=== PATIENT | female | born 1990 | race Two or more races ===

== ENCOUNTER 2023-06-01 10:49 | Inpatient (IN) | payer OTHER ==
[~2023-06-01] VITALS: Ht 162.6 cm; Wt 68.0 kg
[2023-06-01 12:05] LABS: CREATININE, RANDOM URINE 31.15 mg/dL (NOT ESTABLISHED); PROTEIN/CREATININE RATIO 0.73 mg/mg (0.010-0.107)
[2023-06-01 12:17] LABS: HEMATOCRIT 36.6 % (35.0-50.0); HEMOGLOBIN 11.8 g/dL (12.0-18.0); MCH 20.4 (27-36); MCHC 32.1 g/dl (30-36); MCV 63.5 fl (81-99); RBC 5.77 M/ul (4.3-5.7); RDW 17.1 (10.5-15.0)
[2023-06-01 12:28] LABS: CREATININE, SERUM 0.62 mg/dL (0.55-1.02)
[2023-06-01 13:09] VITALS: BP 141/96
[2023-06-01 13:40] LABS: AMPHETAMINES, URINE NEGATIVE (NEGATIVE); BARBITURATES, URINE NEGATIVE (NEGATIVE); BENZODIAZEPINE, URINE NEGATIVE (NEGATIVE); BUPRENORPHINE, URINE NEGATIVE (NEGATIVE); CANNABINOID, URINE NEGATIVE (NEGATIVE); COCAINE, URINE NEGATIVE (NEGATIVE); ECSTASY, URINE NEGATIVE (NEGATIVE); FENTANYL, URINE NEGATIVE (NEGATIVE); METHADONE, URINE NEGATIVE (NEGATIVE); OPIATES, URINE NEGATIVE (NEGATIVE); OXYCODONE, URINE NEGATIVE (NEGATIVE); PHENCYCLIDINE, URINE NEGATIVE (NEGATIVE)
[2023-06-01 13:50] LABS: ABO AB; ANTIBODY SCREEN NEGATIVE; RH POSITIVE
--- NOTE | 2023-06-01 19:08 | PR ---
[facility] [address] [facility] [place] [address] Signed Progress Notes IP Datetime Report Generated by CPN: 06/01/2023 19:08 PROGRESS NOTES: [id number] Impression: Normal Progression of Labor; Non-reassuring Heart Rate Procedures: Intrauterine Pressure Catheter; Scalp Electrode; Sterile Vag Exam Other Plans: continue position changes VITAL SIGNS: [id number] Vital Signs: Reviewed; Within Normal Limits EXAM: [id number] Dilatation: 6.0 Effacement: 80 Station: -2 Contractions: q 1 to 5 min MEMBRANES: [id number] Membranes Status: Ruptured Comments: Unclear whether or not this baby will tolerate labor with ongoing min variability. Will try another position but if no improvement will proceed with section. FETUS A: [id number] FHR Baseline: 140 Variability: Minimal - >Undetectable to <=5bpm Accelerations: 15X15 FHR Category: Category II Presentation: Vertex FETUS B: [id number] Signing Physician: Junie Stokes MD Copies: ~ *Electronically Signed* 06/01/231907 JUNIE STOKES MD PATIENT NAME: ERIK,[facility] PROGRESS NOTE DATE OF : [birth year] PHYSICIAN: JUNIE STOKES MD RPT #: [id number] REPORT IS CONFIDENTIAL AND NOT TO BE RELEASED WITHOUT AUTHORIZATION
--- NOTE | 2023-06-01 19:29 | PR ---
[facility] [address] [facility] [place], [place] [address] Signed Progress Notes IP Datetime Report Generated by CPN: 06/01/2023 19:29 PROGRESS NOTES: [id number] Impression: Non-reassuring Heart Rate Procedures: Sterile Vag Exam Plan: Deliver- Section Other Plans: continue position changes Informed Consent Obtain: Section Delivery VITAL SIGNS: [id number] Vital Signs: Reviewed; Within Normal Limits EXAM: [id number] Dilatation: 6.0 Effacement: 80 Station: -2 Contractions: q 1 to 5 min MEMBRANES: [id number] Membranes Status: Ruptured Comments: Cx unchanged. Now having some late decels and feel she should undergo for delivery as I am unable to increase her contractions given status. Discussed with pt and and they agree to . FETUS A: [id number] FHR Baseline: 140 Variability: Minimal - >Undetectable to <=5bpm Accelerations: 15X15 Decelerations: Late FHR Category: Category II Presentation: Vertex FETUS B: [id number] Signing Physician: Junie Stokes MD Copies: ~ *Electronically Signed* 06/01/231928 JUNIE STOKES MD PATIENT NAME: RAFITA VALENCIA PROGRESS NOTE DATE OF : 91 PHYSICIAN: JUNIE STOKES MD RPT #: [id number] REPORT IS CONFIDENTIAL AND NOT TO BE RELEASED WITHOUT AUTHORIZATION
[2023-06-01 21:41] VITALS: BP 115/71
--- NOTE | 2023-06-01 22:03 | NUR ---
06/01/232202 [place] 2110 PATIENT INTO ROOM 101. PATIENT DROWSY. PATIENT COMPLAINS OF BEING "DIZZY" DENIES BEING NAUSEATED. PATIENT BREATHING EQUAL AND UNLABORED. OXYGEN SATURATIONS ABOVE 90% ON ROOM AIR. SR ON TELE. HR 90-110. RR 12-20. PATIENT SPINAL LEVEL CHECKED. PATIENT STATES SHE IS PAINFUL BUT UNABLE TO RATE PAIN AT THIS TIME. FUNDAL MASSAGE COMPLETE. IVF INFUSING WITH PIT IN A PATENT LINE. BABY WITH [facility] NURSE. AT BEDSIDE. 2119 PATIENT HEAD OF BED ELEVATED. PATIENT CBG CHECK 158. KEZIA AT BEDSIDE. PATIENT DROWSY. PATIENT PALE. PATIENT BREATHING EQUAL AND UNLABORED. OXYGEN SATURATIONS ABOVE 90% ON ROOM AIR. SR ON TELE. HR 90-100. RR 12-20. SPINAL LEVEL CHECKED. FUNDAL MASSAGE COMPLETE. IV INFUSING WITH PIT. BABY WITH [facility] NURSE. AT BEDSIDE. 2129 PATIENT RESTING WITH EYES CLOSED. PATIENT DENIES BEING NAUSEATED. PATIENT PAINFUL BUT DOES NOT RATE PAIN AT THIS TIME. OXYGEN SATURATIONS ABOVE 90% ON ROOM AIR. FUNDAL MASSAGE COMPLETE. SPINAL LEVEL CHECKED. IVF WITH PIT INFUSING. 2144 PATIENT RESTING. PATIENT DENIES BEING NAUSEATED AT THIS TIME. PATIENT PINK. PATIENT DIZZY IMPROVED. PATIENT BREATHING EQUAL AND UNLABORED. OXYGEN SATURATIONS ABOVE 90% ON ROOM AIR. RR 12-20. PATIENT HAS DISCOMFORT WITH FUNDAL MASSAGE BUT UNABLE TO RATE PAIN. SPINAL LEVEL CHECKED. RAMIREZ 150 URINE OUT. YELLOW AND CLEAR. REPORT GIVEN TO [facility] NURSE. NO QUESTIONS FROM NURSE OR PATIENT AT THIS TIME. PATIENT BED LOWEST POSITION. LOCKED. CALL LIGHT WITHIN REACH NO FUTHER NEEDS.
[2023-06-02 05:30] LABS: HEMATOCRIT 30.6 % (35.0-50.0); MCH 20.4 (27-36); MCHC 32.6 g/dl (30-36); MCV 62.5 fl (81-99); RBC 4.89 M/ul (4.3-5.7); RDW 17.4 (10.5-15.0)
--- NOTE | 2023-06-02 09:36 | PR ---
[facility] [address] [place], [place] [address] Signed PP Progress Notes Datetime Report Generated by CPN: 06/02/2023 09:36 SUBJECTIVE: [id number] Pain: Within Normal Limits Nausea/Vomiting: Denies Vital Signs: [id number] Vital Signs: Reviewed; Within Normal Limits Cardiovascular: Normal Respiratory: Normal Abdomen/Uterus: Abnormal Lochia: Normal Vulva/Perineum: Not Done Breasts: Not Done CVA Tenderness: Not Done Extremities: Abnormal Incision: Normal Progress: Abnormal Exam Comments: Abdomen with active BS. Fundus firm, NT @ U-2. H/H 10/30.6, WBC 28.2, plat 176k IMPRESSION/PLAN/PROCEDURES: [id number] Impression: Normal Progression Other Impression: Leukocytosis Other Plans: ambulate, shower Procedures: None Progress Notes: Doing well but still very tired. Also, leukocytosis which is higher than usual though she has no temp elevations. Will repeat in am. Signing Physician: Junie Stokes MD Copies: ~ *Electronically Signed* 06/02/23 0936 JUNIE STOKES MD PATIENT NAME: ERIK,CHANNET PROGRESS NOTE DATE OF : 91 PHYSICIAN: JUNIE STOKSE MD RPT #: [id number] REPORT IS CONFIDENTIAL AND NOT TO BE RELEASED WITHOUT AUTHORIZATION
[2023-06-03 06:06] LABS: HEMATOCRIT 25.5 % (35.0-50.0); HEMOGLOBIN 8.4 g/dL (12.0-18.0); MCH 20.5 (27-36); MCHC 32.8 g/dl (30-36); MCV 62.5 fl (81-99); PLATELET COUNT 175 K/uL (140-440); RBC 4.08 M/ul (4.3-5.7); RDW 16.8 (10.5-15.0)
[2023-06-03 06:24] LABS: LYMPHOCYTES, MANUAL DIFF 11; MONOCYTES, MANUAL DIFF 5; NEUTROPHILS, MANUAL DIFF 84
--- NOTE | 2023-06-03 07:57 | PR ---
[facility] [address] [facility] [place], [place] [address] Signed PP Progress Notes Datetime Report Generated by CPN: 06/03/2023 07:57 SUBJECTIVE: [id number] Pain: Within Normal Limits Nausea/Vomiting: Denies Flatus: Yes Vital Signs: [id number] Vital Signs: Reviewed; Within Normal Limits Cardiovascular: Normal Respiratory: Normal Abdomen/Uterus: Abnormal Lochia: Normal Vulva/Perineum: Not Done Breasts: Not Done CVA Tenderness: Not Done Extremities: Normal Incision: Normal Progress: Normal Exam Comments: Abdomen with active BS. Fundus firm, NT @ U-2. H/H 8.4/25.5, WBC 21.8 S84/L11, plat 175k IMPRESSION/PLAN/PROCEDURES: [id number] Impression: Normal Progression Other Impression: DM not well controlled Other Plans: Increase am insulin Procedures: None Progress Notes: Doing well except sugars not well controlled. Will make sure she is ordering correctly on menu and increase insulin in the am from 20 to 30 units. WBC still elevated though improved and no evidence of fever or other infection. Will keep her in the hospital with probable discharge tomorrow. Signing Physician: Junie Stokes MD Copies: ~ *Electronically Signed* 06/03/23 0757 JUNIE STOKES MD PATIENT NAME: RAFITA VALENCIA PROGRESS NOTE DATE OF : 91 PHYSICIAN: JUNIE STOKES MD RPT #: [id number] REPORT IS CONFIDENTIAL AND NOT TO BE RELEASED WITHOUT AUTHORIZATION
--- NOTE | 2023-06-03 14:20 | NUR ---
[facility] ROUNDS. BABY SLEEPING CONTENTEDLY NEXT TO MOM IN BED. DAD SLEEPING ON COUCH. DID NOT WAKE. MOM EXHIBITED STRONG RELATIONAL RESOURCES. PROVIDED HOSPITALITY; PROVIDED PRAYER. MOM EXPRESSED GRATITUDE.
--- NOTE | 2023-06-04 08:33 | PR ---
[facility] [address] [facility] [place], [place] [address] Signed PP Progress Notes Datetime Report Generated by CPN: 06/04/2023 08:32 SUBJECTIVE: [id number] Pain: Within Normal Limits Pain Comments: low sugar this am--66 Nausea/Vomiting: Denies Flatus: Yes Vital Signs: [id number] Vital Signs: Reviewed Notable Details: mild HTN Cardiovascular: Normal Respiratory: Normal Abdomen/Uterus: Abnormal Lochia: Normal Vulva/Perineum: Not Done Breasts: Not Done CVA Tenderness: Not Done Extremities: Normal Incision: Normal Progress: Abnormal Exam Comments: Abdomen with active BS. Fundus firm, NT @ U-2. IMPRESSION/PLAN/PROCEDURES: [id number] Impression: Normal Progression; Difficulties Other Impression: DM not well controlled Plan: Remove Estero Other Plans: Increase am insulin Procedures: None Progress Notes: Doing well. Low sugar this am so will decrease hs insulin slightly but otherwise improved. I feel she is stable for discharge. Signing Physician: Junie Stokes MD Copies: ~ *Electronically Signed* 06/04/23 08 JUNIE STOKES MD PATIENT NAME: RAFITA VALENCIA PROGRESS NOTE DATE OF : 91 PHYSICIAN: JUNIE STOKES MD RPT #: [id number] REPORT IS CONFIDENTIAL AND NOT TO BE RELEASED WITHOUT AUTHORIZATION
--- NOTE | 2023-06-05 14:33 | OR ---
[facility] [address] [place], [place] [address] Signed DATE OF OPERATION: 06/01/2023 SURGEON: Junie Stokes MD [employer] SUPERVISOR: SHELLIE Copeland DO PREOPERATIVE DIAGNOSES: 37.3 week , non-reassuring heart tracing, type 2 diabetes. POSTOPERATIVE DIAGNOSES: 37.3 week , non-reassuring heart tracing, type 2 diabetes, delivered. PROCEDURE: Primary section with low segment transverse uterine incision. ANESTHESIA: Spinal. ESTIMATED BLOOD LOSS: 600 mL. DRAINS: Richards catheter. INDICATIONS AND FINDINGS: The patient is a 33-year-old female, 1, now para 1, who was admitted in active labor at 37.3 weeks. Her has been complicated by late registration as well as type 2 diabetes which had not been well controlled prior to her . She did well however after beginning insulin. During her labor unfortunately, the baby developed recurrent lates as well as poor variability and the decision was made to proceed with as she was remote from delivery. At the time of delivery, she was delivered of a little girl via lower segment transverse uterine incision from the LOP position with Apgars of 8 and 9 and weight of 7 pounds 8 ounces. The uterus, tubes, ovaries, and placenta appeared normal. PROCEDURE IN DETAIL: The patient was prepped and draped in the supine position. A Pfannenstiel skin incision was made and carried down to the fascia. The incision was extended laterally. The inferior and superior fascial flaps were then created. The muscles were bluntly divided Electronically Signed By: JUNIE STOKES MD 06/05/23 1433 PATIENT NAME: RAFITA VALENCIA OPERATIVE REPORT DATE OF : 89 REPORT #: [id number] PHYSICIAN: JUNIE STOKES MD PCP: SEVERIANO FROST DO REPORT IS CONFIDENTIAL AND NOT TO BE RELEASED WITHOUT AUTHORIZATION [facility] [address] [place], [place] [address] Signed and the peritoneum opened bluntly and the incision extended bluntly. The Dheeraj retractor was then placed. The uterine incision was made at the upper aspect of the peritoneal reflection. The baby was delivered with the above findings and handed off to the pediatric staff in attendance. The placenta was removed manually and the uterus explored with a lap tape assuring no remaining fragments. The edges of the incision were identified. The uterus was closed in 2 layers using 0 Monocryl. The first layer was a running locking stitch and the second was a vertical imbricating stitch. The abdomen was irrigated, inspected, and a [id number] was required in the center for control of bleeding. Following this, there was good hemostasis and the retractor was removed and the peritoneum identified. The peritoneum was then closed with a running suture of 3-0 Vicryl. The muscles were brought together with interrupted sutures of 0 Vicryl. Bleeding points on the muscles were controlled with cautery. This layer was irrigated and inspected and good hemostasis was noted. The fascia was then closed from each angle to the midline with a running suture of 0 Vicryl. The subcu space was irrigated and bleeding points controlled with cautery. The deep space was closed with interrupted sutures of 3-0 Vicryl. The skin was closed with augusta. All sponge and needle counts were correct. She tolerated the procedure well and was taken to the recovery room in good condition. Junie Stokes MD PJW/LETICIA /[id number] Copies: ~ Electronically Signed By: JUNIE STOKES MD 06/05/23 1433 PATIENT NAME: RAFITA VALENCIA OPERATIVE REPORT DATE OF : 91 REPORT #: [id number] PHYSICIAN: JUNIE STOKES MD PCP: SEVERIANO FROST DO REPORT IS CONFIDENTIAL AND NOT TO BE RELEASED WITHOUT AUTHORIZATION
== END 2023-06-04 14:59 | disposition home or self-care (01) | DRG 787 ==
LOC: FBCO 10:49 → FBC 12:58
PROVIDERS: ADMIT Obstetrics & Gynecology; ATTEND Obstetrics & Gynecology
PROC: 10H07YZ Insertion of Other Device into Products of Conception, Via Natural or Artificial Opening (ICD-10-PCS; 2023-06-01)
PROC: 4A033R1 Measurement of Arterial Saturation, Peripheral, Percutaneous Approach (ICD-10-PCS; 2023-06-01)
PROC: 10D00Z1 Extraction of Products of Conception, Low, Open Approach (ICD-10-PCS; principal; 2023-06-01 20:08)
DX: O76 Abnormality in fetal heart rate and rhythm complicating labor and delivery (principal); O99.12 Other diseases of the blood and blood-forming organs and certain disorders involving the immune mechanism complicating childbirth; Z37.0 Single live birth; O16.4 Unspecified maternal hypertension, complicating childbirth; O24.92 Unspecified diabetes mellitus in childbirth; Z3A.37 37 weeks gestation of pregnancy; D72.829 Elevated white blood cell count, unspecified; O99.824 Streptococcus B carrier state complicating childbirth; Z88.8 Allergy status to other drugs, medicaments and biological substances; Z79.4 Long term (current) use of insulin
CPT/HCPCS: 01961; 36415; 59025; 76942; 80307; 82565; 82570; 82803; 84156; 84450; 84520; 84550; 85025; 85027; 85060; 86850; 86900; 86901; A9270; G0463; J0131; J0456; J0690; J1100; J1815; J1885; J2001; J2371; J2405; J2540; J2590; J2795; J7042; J7060; J7121